=== PATIENT | female | born 2000 | race Caucasian/White ===

== ENCOUNTER → 2024-01-28 14:25 | Outpatient (BNVA) | payer MEDICAID, SELFPAY | PROVIDERS: PCP Nurse Practitioner Family; Visit Provider Nurse Practitioner Family | DX: R05.9 Cough, unspecified (principal); J06.9 Acute upper respiratory infection, unspecified; J45.20 Mild intermittent asthma, uncomplicated | CPT/HCPCS: 87426 ==

== ENCOUNTER → 2024-04-23 10:58 | Outpatient (BNVA) | payer MEDICAID, SELFPAY | PROVIDERS: PCP Nurse Practitioner Family; Visit Provider Emergency Medicine | DX: Z20.2 Contact with and (suspected) exposure to infections with a predominantly sexual mode of transmission (principal) | CPT/HCPCS: 87491; 87591 ==

== ENCOUNTER → 2024-06-26 11:53 | Outpatient (BNVA) | payer MEDICAID, SELFPAY | PROVIDERS: PCP Nurse Practitioner Family | DX: Z34.90 Encounter for supervision of normal pregnancy, unspecified, unspecified trimester (principal) | CPT/HCPCS: 81025 ==

== ENCOUNTER 2024-08-16 20:26 | Emergency (ER) | payer MEDICAID, SELFPAY ==
[2024-08-16 20:36] VITALS: BP 105/67; PULSE 75; RESP 16; TEMP 36.6; O2SAT 95; BMI 24.7
--- NOTE | 2024-08-16 20:55 | ED_ITS ---
HPI - 2 General: Chief complaint: Vaginal Bleeding Stated complaint: 8-9wks, cramping,bleeding Time Seen by Provider: 08/16/24 20:31 Source: patient Mode of arrival: ambulatory Limitations: no limitations History of Present Illness: 24-year-old female states she is current ly 8 to 9 weeks she states that she saw her OB today and ultrasound showed twin gestation but was informed that appeared irregular patient states she started having some bleeding this evening she denies any severe pain denies any heavy bleeding she denies any worse improving factors. Associated symptoms: Deny abdominal pain, dysuria, headache(s), nausea or vomiting Related Data Previous Rx's Medication Instructions Recorded meclizine 25 mg tablet 25 mg PO .once daily PRN motion 01/02/24 sickness #10 tabs albuterol sulfate 90 mcg/actuation 2 inh inhalation QID PRN shortness 01/28/24 breath activated powder inhaler of breath or wheezing #1 ea (ProAir RespiClick) norgestimate 0.25 mg-ethinyl 1 tab PO DAILY #84 tabs 03/26/24 estradiol 35 mcg tablet (Sprintec (28)) Allergies Allergy/AdvReac Type Severity Reaction Status Date / Time No Known Allergies Allergy Verified 08/16/24 20:43 Review of Systems 2 Const: Denies: fever(s), chills, body aches or change in appetite ENMT: Denies: throat pain or dental pain Card: Denies: chest pain Resp: Denies: dyspnea GI: Denies: abdominal pain, nausea, vomiting or diarrhea : Reports: vaginal bleeding; Denies: dysuria Musc: Denies: neck pain or back pain Skin/Breast: Denies: rash Neuro: Denies: headache(s) PFSH ED 2 PFSH: Social History Smoking and tobacco/nicotine status: never used tobacco/nicotine Alcohol intake: never Substance/Drug Use: never Adopted: Yes Caregiver/support person: No Lives independently: Yes Household members: family Housing: House Marital status: Number of children: 1 service: No Current occupational status: unemployed Physical Exam 2 Const: COMMON NORMALS: no acute distress, patient oriented x3 and healthy appearing HENMT: COMMON NORMALS: normocephalic and atraumatic HEAD & SCALP: n ormocephalic and atraumatic Neck/C-Spine: COMMON NORMALS: full ROM and supple Chest: COMMONS NORMALS: normal inspection of the chest Resp: COMMON NORMALS: normal respiratory effort Cardio: COMMON NORMALS: regular rate, regular rhythm and No murmurs present (Cardio) RATE: regular rate RHYTHM: regular rhythm GI: COMMON NORMALS: Normal to inspection, nondistended, normoactive bowel sounds present, Soft to palpation, non-tender and no masses PALPATION: Yes Soft to palpation Extremity: COMMON NORMALS: normal to inspection and full ROM Neuro: COMMON NORMALS: patient oriented x3, moves all extremities and no focal motor deficits Psych: COMMON NORMALS: mental status grossly normal, Normal thought process present and cooperative THOUGHT PROCESS: Normal thought process present Skin: COMMON NORMALS: no rashes or lesions noted and no wounds GENERAL SKIN EXAM: no rashes or lesions noted Course 2 Vital Signs: Vital signs: Vital Signs Temperature 97.9 F 08/16/24 20:36 Pulse Rate 75 08/16/24 20:36 Respiratory Rate 16 08/16/24 20:36 Blood Pressure 105/67 08/16/24 20:36 Pulse Oximetry 95 08/16/24 20:36 Oxygen Delivery Me thod Room Air 08/16/24 20:36 MDM - OB/Uterine Contractions Medical Decision Making Patient presents here with vaginal bleeding. Patient's ultrasound showed twin gestational sacs with no definite IUP likely twin demise I did inform patient that she is follow-up with OB return if worsening. Medical Records I reviewed the patient's medical records. Lab Data I reviewed the patient's lab results. 08/16/24 21:10 Laboratory Results WBC 10.02 10^3/uL (3.29-11.43) 08/16/24 21:10 RBC 4.46 10^6/uL (3.85-5.65) 08/16/24 21:10 Hgb 12.90 g/dL (11.27-16.99) 08/16/24 21:10 Hct 38.3 % (36-47) 08/16/24 21:10 MCV 85.9 fl (85-98) 08/16/24 21:10 MCH 28.9 pg (27-33) 08/16/24 21:10 MCHC 33.7 g/dL (30-55) 08/16/24 21:10 RDW 11.7 % (12.1-15.1) L 08/16/24 21:10 Plt Count 251 10^3/cmm (157-399) 08/16/24 21:10 MPV 10.1 fL (7.4-10.4) 08/16/24 21:10 Neut % (Auto) 60.1 % 08/16/24 21:10 Lymph % (Auto) 31.4 % 08/16/24 21:10 [place] % (Auto) 6.2 % 08/16/24 21:10 Eos % (Auto) 1.6 % 08/16/24 21:10 Baso % (Auto) 0.5 % 08/16/24 21:10 Neut # (Auto) 6.02 10^3/uL (1.8-7.7) 08/16/24 21:10 Lymph # (Auto) 3.2 10^3/uL (0.8-4.8) 08/16/24 21:10 [place] # (Auto) 0.6 10^3/uL (0.2-0.9) 08/16/24 21:10 Eos # (Auto) 0.2 10^3/uL (0.0-0.8) 08/16/24 21:10 Baso # (Auto) 0.1 10^3/uL (0.0-0.1) 08/16/24 21:10 Nucleated RBC % (auto) 0 % 08/16/24 21:10 Nucleated RBCs # 0.0 /100WBC 08/16/24 21:10 Blood Type A Positive 08/16/24 21:10 Rho(D) Type Rh positive 08/16/24 21:10 All radiology interpretation(s) finalized by discharge Discharge Plan Discharge Patient Disposition: Home Clinical Impression: Threatened miscarriage Condition: Stable Prescriptions: No Action meclizine 25 mg tablet 25 mg PO .once daily PRN (Reason: motion sickness) Qty: 10 0RF ProAir RespiClick 90 mcg/actuation aerosol powdr breath activated 2 inh inhalation QID PRN (Reason: shortness of breath or wheezing) Qty: 1 5RF norgestimate-ethinyl estradiol [Sprintec (28)] 0.25-35 mg-mcg tablet 1 tab PO DAILY Qty: 84 3RF Discharge Orders: Discharge ED (Routine); Ordered 08/16/24 Ordered By: Fermin Muir Referrals: Magda Higginbotham MD [Physician] - 4-7 days Carla Fernandez FNP-C [Primary Care Provider] - Discharge Diet: Advance as tolerated Discharge Activity: Resume usual activity Patient Instructions: Threatened Miscarriage (ED) Coding Level of Care Code ED Machine [employer] for Matthew Lambert
--- NOTE | 2024-08-16 21:00 | USR_ITS ---
PROCEDURE INFORMATION: Exam: US First Trimester, Transabdominal and US , Transvaginal Exam date and time: 08/16/2024 9:21 PM Age: 24 years old Clinical indication: Lmp or gestational age (in weeks): 9 weeks 5 days by lmp; Antepartum complications; Bleeding; ; Additional info: Threatened miscarriage LABS AND CLINICAL REPORTS: Last menstrual period start date: 06/09/2024 Gestational age (Established): 9 w 5 d Estimated due date (Established): 03/16/2025 TECHNIQUE: Imaging protocol: Real-time transabdominal obstetrical ultrasound of the maternal pelvis and a first trimester , less than 14 weeks 0 days, with image documentation. Transvaginal imaging was used for better evaluation of the fetus, adnexa, and/or cervix. COMPARISON: No relevant prior studies available. FINDINGS: GESTATION: Multifetal identity: Gestation: A total of 2 Intrauterine gestation sacs are visualized. No definitive poles visualized. Yolk sacs are visualized. Mean gestational sac diameter measures 2.02 cm in 2.15 cm with estimated ultrasound age is of 6 weeks, 6 days and 7 weeks, 1 day respectively. Embryo/ cardiac activity (BPM): No pole identified. Extra-embryonic membranes/Placenta: Unremarkable. No subchorionic bleed. Amniotic/Chorionic fluid: Amniotic and extra-amniotic fluid are normal for gestational age. BIOMETRY: Gestational age (AUA): 7 w 0 d Estimated due date (AUA): 04/04/2025 Mean sac diameter: 2.09 cm. EGA (MSD) is 6 w 6 d MATERNAL: Uterus: Uterus measures 4.52 cm x 8.08 cm x 7.47 cm. Cervix: Unremarkable. Endocervical canal is closed. Right ovary/adnexa: Right ovary measures 3.2 cm x 2 cm x 3.4 cm. Right ovarian volume is 11.6 mL. Color and spectral Doppler interrogation of the right ovary demonstrates normal vascularity. There is a unilocular right ovarian cyst measuring 1.5 cm in diameter. Left ovary/adnexa: Left ovary measures 4 cm x 1 cm x 2.9 cm. Left ovarian volume is 6.4 mL. Color and spectral Doppler interrogation of the left ovary demonstrates normal vascularity. Intraperitoneal space: No intraperitoneal free fluid. US/US OB <= 14 weeks fetus [id number] IMPRESSION: Two intrauterine gestational sacs with yolk sacs. No definitive pole at this time. These findings are compatible with an early twin intrauterine . I can not comment on viability at this time. No evidence of ovarian torsion. Unilocular right ovarian cyst.
[2024-08-16 21:27] LABS: Basophils # 0.1 10^3/uL (0.0-0.1); Basophils % 0.5 %; Eosinophils # 0.2 10^3/uL (0.0-0.8); Eosinophils % 1.6 %; Hematocrit 38.3 % (36-47); Lymphocytes # 3.2 10^3/uL (0.8-4.8); Lymphocytes % 31.4 %; Mean Corpuscular HGB Conc 33.7 g/dL (30-55); Mean Corpuscular Hemoglobin 28.9 pg (27-33); Mean Corpuscular Volume 85.9 fl (85-98); Mean Platelet Volume 10.1 fL (7.4-10.4); Monocytes # 0.6 10^3/uL (0.2-0.9); Monocytes % 6.2 %; Neutrophils # 6.02 10^3/uL (1.8-7.7); Neutrophils % 60.1 %; Nucleated Red Blood Cells % 0 %; Platelet Count 251 10^3/cmm (157-399); Red Blood Count 4.46 10^6/uL (3.85-5.65); Red Cell Distribution Width 11.7 % (12.1-15.1); White Blood Count 10.02 10^3/uL (3.29-11.43)
[2024-08-16 22:16] VITALS: BP 110/69; PULSE 69; RESP 16; O2SAT 99
== END 2024-08-16 22:16 | disposition home or self-care (01) ==
PROVIDERS: Emergency Provider Emergency Medicine; PCP Nurse Practitioner Family
DX: O20.0 Threatened abortion (principal)
CPT/HCPCS: 36415; 76801; 84702; 85025; 86850; 86900; 99284

== ENCOUNTER → 2024-10-14 15:52 | Outpatient (BNVA) | payer MEDICAID, SELFPAY | PROVIDERS: PCP Nurse Practitioner Family; Visit Provider Nurse Practitioner Family | DX: R22.31 Localized swelling, mass and lump, right upper limb (principal) | CPT/HCPCS: 73110 ==

== ENCOUNTER 2024-10-29 16:14 | Outpatient (CLI) | payer MEDICAID, SELFPAY ==
--- NOTE | 2024-10-29 16:45 | USR_ITS ---
PROCEDURE INFORMATION: Exam: US Right Limited Joint or Other Non-Vascular Extremity Structure Exam date and time: 10/29/2024 4:22 PM Age: 24 years old Clinical indication: Mass or lump; Arm, upper; Right; Additional info: R22.31 - localized swelling, mass and lump, right upper limb TECHNIQUE: Imaging protocol: US right limited joint or other nonvascular extremity structure. Real-time ultrasound with image documentation. Exam focused on the area of clinical interest. COMPARISON: CR XR wrist RT min 3V* [id number] 10/14/2024 3:59 PM FINDINGS: Soft tissues: Unremarkable. No loculated collections. Other findings: Sonographic images were obtained over the area of interest of right wrist lump. A mildly complex predominant anechoic cystic focus with component of internal echoes and/or partial septation identified within the soft tissues, measuring 1.2 x 1.1 x 0.5 cm. This is without color flow or nonvascular. This appear somewhat ovoid and slightly lobulated. US/US soft tissue/extremity [id number] IMPRESSION: 1.2 x 1.1 x 0.5 cm mildly complex nonvascular cystic mass corresponding to area of right wrist lump. Findings likely represent ganglion cyst. Further evaluation as clinically indicated.
== END 2024-10-29 16:15 | disposition home or self-care (01) ==
LOC: RAD 16:14
PROVIDERS: PCP Nurse Practitioner Family; Visit Provider Nurse Practitioner Family
DX: R22.31 Localized swelling, mass and lump, right upper limb (principal)
CPT/HCPCS: 76882

== ENCOUNTER → 2024-11-24 09:58 | Outpatient (BNVA) | payer MEDICAID, SELFPAY | PROVIDERS: PCP Nurse Practitioner Family; Visit Provider Specialist | DX: M67.431 Ganglion, right wrist (principal) | CPT/HCPCS: 73110 ==

== ENCOUNTER 2024-12-11 23:10 | Emergency (ER) | payer MEDICAID, SELFPAY ==
[2024-12-11 23:22] VITALS: BP 123/68; PULSE 61; RESP 20; TEMP 36.7; O2SAT 99
[2024-12-11 23:55] LABS: Bilirubin Urine Negative (Negative); Blood Urine 3+ (Negative); Glucose Urine UA Negative (Normal); Ketones Urine Negative (Negative); Leukocyte Esterase Urine 2+ (Negative); Nitrate Urine Negative (Negative); Protein Urine 1+ (Negative); Specific Gravity, Urine 1.009 (1.005-1.030); Urine Appearance Cloudy (CLEAR); Urobilinogen Urine 0.2 mg/dL (Negative); pH Urine 6.5 (5-7)
[2024-12-12] LABS: Add Urine Microscopic? YES; Bacteria Urine None Seen /hpf; Hyaline Casts Urine 0-4 /lpf; RBC Urine >100 /hpf (0-2); Squamous Epithelial Cell Urine 0-5 /hpf (0-5)
--- NOTE | 2024-12-12 00:23 | ED_ITS ---
Documented by User: Cassie So NP 12/12/24 13:26 HPI - General Adult 2 General: Chief complaint: Vaginal Bleeding Stated complaint: VAG BLEEDING, ABDOMEN PAIN Time Seen by Provider: 12/11/24 23:16 History of Present Illness: 24-year-old female patient presents to [facility] emergency department with vaginal bleeding onset today. Patient states she had a miscarriage 2 months ago and she has not sure if this is still from her miscarriage or the start of her period. Patient denies any abdominal pain vaginal pain urinary symptoms back pain. Patient denies any fever. Patient denies any other complaints Related Data Previous Rx's ?Medication ?Instructions ?Recorded meclizine 25 mg tablet 25 mg PO .once daily PRN mot ion 01/02/24 sickness #10 tabs albuterol sulfate 90 mcg/actuation 2 inh inhalation QI D PRN shortness 01/28/24 breath activated powder inhaler of breath or wheezing #1 ea (ProAir RespiClick) norgestimate 0.25 mg-ethinyl 1 tab PO DAILY #84 tabs 0 03/26/24 estradiol 0.035 mg tablet (Sprintec (28)) cephalexin 500 mg capsule 500 mg PO TID 7 days #21 cap s 12/12/24 Allergies Allergy/AdvReac Type Severity Reaction Status Date / Time No Known Allergies Allergy Verified 11/24/24 08:02 Review of Systems 2 General: Reports: 10 or more systems reviewed and unremarkable except in HPI and below PFSH ED 2 PFSH: Social History Smoking and tobacco/nicotine status: never used tobacco/nicotine Alcohol intake: never Substance/Drug Use: never Adopted: Yes Caregiver/support person: No Lives independently: Yes Household members: family Housing: House Marital status: Number of children: 1 service: No Current occupational status: unemployed Physical Exam 2 Const: COMMON NORMALS: no acute distress, average body habitus, patient oriented x3, no limitations and well nourished GENERAL APPEARANCE: c ooperative ORIENTATION/CONSCIOUSNESS: Yes awake Resp: COMMON NORMALS: normal respiratory effort GI: COMMON NORMALS: Normal to inspection, nondistended, normoactive bowel sounds present, Soft to palpation and non-tender PALPATION: Yes Soft to palpation Neuro: COMMON NORMALS: patient oriented x3 Psych: ATTITUDE: Yes engaged ACTIVITY/MOTOR BEHAVIOR: Yes appropriate eye contact ATTENTION/CONCENTRATION: Yes attention grossly intact M FREDERIC/COGNITION: Yes memory grossly intact Skin: COMMON NORMALS: no rashes or lesions noted, turgor normal and no jaundice GENERAL SKIN EXAM: no rashes or lesions noted and turgor normal Course 2 Vital Signs: Vital signs: Vital Signs Temperature 98.1 F 12/11/24 23:22 Pulse Rate 52 L 12/12/24 02:47 Respiratory Rate 16 12/12/24 02:47 Blood Pressure 114/64 12/12/24 02:47 Pulse Oximetry 100 12/12/24 02:47 MDM - General Adult Medical Decision Making Labs and US pending at this time. Report given to Dr. Hernandez. Dr. Hernandez will assume care at this time. Lab Data 12/11/24 01:35 12/11/24 01:35 Radiology Impressions Transvaginal US 12/12/24 23:16 IMPRESSION: 1. No evidence of endometrial thickening. Trace fluid within the endometrial canal with questionable vascularity near the fundal endometrium. 2. Trace pelvic free fluid, likely physiologic. 3. Otherwise unremarkable pelvic ultrasound. Laboratory Results WBC 12.59 10^3/uL (3.29-11.43) H 12/11/24 01:35 RBC 4.06 10^6/uL (3.85-5.65) 12/11/24 01:35 Hgb 11.90 g/dL (11.27-16.99) 12/11/24 01:35 Hct 35.6 % (36-47) L 12/11/24 01:35 MCV 87.7 fl (85-98) 12/11/24 01:35 MCH 29.3 pg (27-33) 12/11/24 01:35 MCHC 33.4 g/dL (30-55) 12/11/24 01:35 RDW 11.6 % (12.1-15.1) L 12/11/24 01:35 Plt Count 254 10^3/cmm (157-399) 12/11/24 01:35 MPV 10.4 fL (7.4-10.4) 12/11/24 01:35 Neut % (Auto) 73.5 % 12/11/24 01:35 Lymph % (Auto) 20.3 % 12/11/24 01:35 [place] % (Auto) 4.1 % 12/11/24 01:35 Eos % (Auto) 1.3 % 12/11/24 01:35 Baso % (Auto) 0.5 % 12/11/24 01:35 Neut # (Auto) 9.27 10^3/uL (1.8-7.7) H 12/11/24 01:35 Lymph # (Auto) 2.6 10^3/uL (0.8-4.8) 12/11/24 01:35 Randall # (Auto) 0.5 10^3/uL (0.2-0.9) 12/11/24 01:35 Eos # (Auto) 0.2 10^3/uL (0.0-0.8) 12/11/24 01:35 Baso # (Auto) 0.1 10^3/uL (0.0-0.1) 12/11/24 01:35 Nucleated RBC % (auto) 0 % 12/11/24 01:35 Nucleated RBCs # 0.0 /100WBC 12/11/24 01:35 Sodium 141 mmol/L (136-145) 12/11/24 01:35 Potassium 3.8 mmol/L (3.5-5.1) 12/11/24 01:35 Chloride 105 mmol/L (98-107) 12/11/24 01:35 Carbon Dioxide 23 mmol/L (22-29) 12/11/24 01:35 Anion Gap 16.8 (5-19) 12/11/24 01:35 BUN 9 mg/dL (6-20) 12/11/24 01:35 Creatinine 0.5 mg/dL (0.5-0.9) 12/11/24 01:35 GFR Calculation 154.3 mL/min (90-130) H 12/11/24 01:35 Glucose 98 mg/dL (65-115) 12/11/24 01:35 Calculated Osmolality 291 mOsm/kg (285-295) 12/11/24 01:35 Calcium 9.0 mg/dL (8.5-10.5) 12/11/24 01:35 Total Bilirubin 0.2 mg/dL (0.15-1.2) 12/11/24 01:35 AST 13 U/L (0-32) 12/11/24 01:35 ALT 12 U/L (0-33) 12/11/24 01:35 Alkaline Phosphatase 67 U/L (35-105) 12/11/24 01:35 Total Protein 7.0 g/dL (6.6-8.7) 12/11/24 01:35 Albumin 4.0 g/dL (3.5-5.2) 12/11/24 01:35 Globulin 3.0 g/dL (1.3-4.6) 12/11/24 01:35 Ser , Semi-Qnt 21.37 mIU/mL 12/11/24 01:35 Urine Color Red (Yellow) A 12/11/24 23: Urine Appearance Cloudy (CLEAR) A 12/11/24 23: Urine pH 6.5 (5-7) 12/11/24 23: Ur Specific [place] 1.009 (1.005-1.030) 12/11/24 23: Urine Protein 1+ (Negative) A 12/11/24: Urine Glucose (UA) Negative (Normal) 12/11/24 23: Urine Ketones Negative (Negative) 12/11/24 23: Urine Blood 3+ (Negative) A 12/11/24: Urine Nitrate Negative (Negative) 12/11/24: Urine Bilirubin Negative (Negative) 12/11/24 23: Urine Urobilinogen 0.2 mg/dL (Negative) 12/11/24 23: Ur Leukocyte Esterase 2+ (Negative) A 12/11/24: Urine RBC >100 /hpf (0-2) H 12/11/24 23: Urine WBC 11-20 /hpf (0-5) H 12/11/24 23: Ur Squamous Epith Cells 0-5 /hpf (0-5) 12/11/24: Amorphous Sediment Not Reportable 12/11/24: Urine Bacteria None seen /hpf (NONE) 12/11/24: Hyaline Casts 0-4 /lpf H 12/11/24 23:33 Discharge Plan Discharge Patient Disposition: Home Clinical Impression: Vaginal bleeding Condition: Stable Prescriptions: New cephalexin 500 mg capsule 500 mg PO TID 7 Days Qty: 21 0RF No Action meclizine 25 mg tablet 25 mg PO .once daily PRN (Reason: motion sickness) Qty: 10 0RF ProAir RespiClick 90 mcg/actuation aerosol powdr breath activated 2 inh inhalation QID PRN (Reason: shortness of breath or wheezing) Qty: 1 5RF norgestimate-ethinyl estradiol [Sprintec (28)] 0.25-35 mg-mcg tablet 1 tab PO DAILY Qty: 84 3RF Discharge Orders: Discharge ED (Routine); Ordered 12/12/24 Ordered By: Giorgi Hernandez Referrals: Carla Fernandez FNP-C [Primary Care Provider, Family Practice] - 4-7 days Patient Instructions: Abnormal (Dysfunctional) Uterine Bleeding (ED), Urinary Tract Infection in Women (ED), Opioid Safety, Pain Management Activity Restrictions/Additional Instructions: Antibiotics as directed for urinary tract infection. You will need your quantitative test checked again to ensure that number is continuing to decrease down to 0. Follow-up with your doctor next week. Call Friday for an appointment. You will need to have your urine retested as well to ensure you are clearing the infection. Return for any worsening symptoms including and especially worsening bleeding. Print Language: Fijian Coding Level of Care Code ED [employer] Agent for Chg Fwd Documented by User: Giorgi Hernandez DO 12/12/24 02:50 HPI - General Adult 2 General: Chief complaint: Vaginal Bleeding Stated complaint: VAG BLEEDING, ABDOMEN PAIN Time Seen by Provider: 12/11/24 23:16 Related Data Previous Rx's ?Medication ?Instructions ?Recorded meclizine 25 mg tablet 25 mg PO .once daily PRN mot ion 01/02/24 sickness #10 tabs albuterol sulfate 90 mcg/actuation 2 inh inhalation QI D PRN shortness 01/28/24 breath activated powder inhaler of breath or wheezing #1 ea (ProAir RespiClick) norgestimate 0.25 mg-ethinyl 1 tab PO DAILY #84 tabs 0 03/26/24 estradiol 0.035 mg tablet (Sprintec (28)) cephalexin 500 mg capsule 500 mg PO TID 7 days #21 cap s 12/12/24 Allergies Allergy/AdvReac Type Severity Reaction Status Date / Time No Known Allergies Allergy Verified 11/24/24 08:02 PFS ED 2 PFSH: Social History Smoking and tobacco/nicotine status: never used tobacco/nicotine Alcohol intake: never Substance/Drug Use: never Adopted: Yes Caregiver/support person: No Lives independently: Yes Household members: family Housing: House Marital status: Number of children: 1 service: No Current occupational status: unemployed Course 2 Vital Signs: Vital signs: Vital Signs Temperature 98.1 F 12/11/24 23:22 Pulse Rate 52 L 12/12/24 02:47 Respiratory Rate 16 12/12/24 02:47 Blood Pressure 114/64 12/12/24 02:47 Pulse Oximetry 100 12/12/24 02:47 [facility] - General Adult Medical Decision Making Labs and US pending at this time. Report given to Dr. Hernandez. Dr. Hernandez will assume care at this time. Patient's laboratory shows a white blood cell count of 12.6. BMP is normal. hCG quantitative is 21. Urinalysis shows 2+ leukocyte esterase with 11-20 white blood cells. There is greater than 100 whites, contamination from vaginal bleeding. Will treat as urinary tract infection. Transvaginal ultrasound shows no evidence of a gestational sac. There is no evidence of endometrial thickening and physiologic pelvic free fluid. She will need outpatient follow- up. She will need repeat quantitative hCG testing as she is 2 months out from miscarriage, and hCG will need to come down to 0. To return for any worsening bleeding. Lab Data 12/11/24 01:35 12/11/24 01:35 Radiology Impressions Transvaginal US 12/12/24 23:16 IMPRESSION: 1. No evidence of endometrial thickening. Trace fluid within the endometrial canal with questionable vascularity near the fundal endometrium. 2. Trace pelvic free fluid, likely physiologic. 3. Otherwise unremarkable pelvic ultrasound. Laboratory Results WBC 12.59 10^3/uL (3.29-11.43) H 12/11/24 01:35 RBC 4.06 10^6/uL (3.85-5.65) 12/11/24 01:35 Hgb 11.90 g/dL (11.27-16.99) 12/11/24 01:35 Hct 35.6 % (36-47) L 12/11/24 01:35 MCV 87.7 fl (85-98) 12/11/24 01:35 MCH 29.3 pg (27-33) 12/11/24 01:35 MCHC 33.4 g/dL (30-55) 12/11/24 01:35 RDW 11.6 % (12.1-15.1) L 12/11/24 01:35 Plt Count 254 10^3/cmm (157-399) 12/11/24 01:35 MPV 10.4 fL (7.4-10.4) 12/11/24 01:35 Neut % (Auto) 73.5 % 12/11/24 01:35 Lymph % (Auto) 20.3 % 12/11/24 01:35 Randall % (Auto) 4.1 % 12/11/24 01:35 Eos % (Auto) 1.3 % 12/11/24 01:35 Baso % (Auto) 0.5 % 12/11/24 01:35 Neut # (Auto) 9.27 10^3/uL (1.8-7.7) H 12/11/24 01:35 Lymph # (Auto) 2.6 10^3/uL (0.8-4.8) 12/11/24 01:35 Randall # (Auto) 0.5 10^3/uL (0.2-0.9) 12/11/24 01:35 Eos # (Auto) 0.2 10^3/uL (0.0-0.8) 12/11/24 01:35 Baso # (Auto) 0.1 10^3/uL (0.0-0.1) 12/11/24 01:35 Nucleated RBC % (auto) 0 % 12/11/24 01:35 Nucleated RBCs # 0.0 /100WBC 12/11/24 01:35 Sodium 141 mmol/L (136-145) 12/11/24 01:35 Potassium 3.8 mmol/L (3.5-5.1) 12/11/24 01:35 Chloride 105 mmol/L (98-107) 12/11/24 01:35 Carbon Dioxide 23 mmol/L (22-29) 12/11/24 01:35 Anion Gap 16.8 (5-19) 12/11/24 01:35 BUN 9 mg/dL (6-20) 12/11/24 01:35 Creatinine 0.5 mg/dL (0.5-0.9) 12/11/24 01:35 GFR Calculation 154.3 mL/min (90-130) H 12/11/24 01:35 Glucose 98 mg/dL (65-115) 12/11/24 01:35 Calculated Osmolality 291 mOsm/kg (285-295) 12/11/24 01:35 Calcium 9.0 mg/dL (8.5-10.5) 12/11/24 01:35 Total Bilirubin 0.2 mg/dL (0.15-1.2) 12/11/24 01:35 AST 13 U/L (0-32) 12/11/24 01:35 ALT 12 U/L (0-33) 12/11/24 01:35 Alkaline Phosphatase 67 U/L (35-105) 12/11/24 01:35 Total Protein 7.0 g/dL (6.6-8.7) 12/11/24 01:35 Albumin 4.0 g/dL (3.5-5.2) 12/11/24 01:35 Globulin 3.0 g/dL (1.3-4.6) 12/11/24 01:35 Ser , Semi-Qnt 21.37 mIU/mL 12/11/24 01:35 Urine Color Red (Yellow) A 12/11/24 23: Urine Appearance Cloudy (CLEAR) A 12/11/24 23: Urine pH 6.5 (5-7) 12/11/24 23: Ur Specific [place] 1.009 (1.005-1.030) 12/11/24 23: Urine Protein 1+ (Negative) A 12/11/24 23: Urine Glucose (UA) Negative (Normal) 12/11/24 23: Urine Ketones Negative (Negative) 12/11/24 23: Urine Blood 3+ (Negative) A 12/11/24 23: Urine Nitrate Negative (Negative) 12/11/24 23:33 Urine Bilirubin Negative (Negative) 12/11/24 23:33 Urine Urobilinogen 0.2 mg/dL (Negative) 12/11/24 23:33 Ur Leukocyte Esterase 2+ (Negative) A 12/11/24 23:33 Urine RBC >100 /hpf (0-2) H 12/11/24 23:33 Urine WBC 11-20 /hpf (0-5) H 12/11/24 23:33 Ur Squamous Epith Cells 0-5 /hpf (0-5) 12/11/24 23:33 Amorphous Sediment Not Reportable 12/11/24 23:33 Urine Bacteria None seen /hpf (NONE) 12/11/24 23:33 Hyaline Casts 0-4 /lpf H 12/11/24 23:33 All radiology interpretation(s) finalized by discharge Discharge Plan Discharge Patient Disposition: Home Clinical Impression: Vaginal bleeding Condition: Stable Prescriptions: New cephalexin 500 mg capsule 500 mg PO TID 7 Days Qty: 21 0RF No Action meclizine 25 mg tablet 25 mg PO .once daily PRN (Reason: motion sickness) Qty: 10 0RF ProAir RespiClick 90 mcg/actuation aerosol powdr breath activated 2 inh inhalation QID PRN (Reason: shortness of breath or wheezing) Qty: 1 5RF norgestimate-ethinyl estradiol [Sprintec (28)] 0.25-35 mg-mcg tablet 1 tab PO DAILY Qty: 84 3RF Discharge Orders: Discharge ED (Routine); Ordered 12/12/24 Ordered By: Giorgi Hernandez Referrals: Carla Fernandez FNP-C [Primary Care Provider, Family Practice] - 4-7 days Patient Instructions: Abnormal (Dysfunctional) Uterine Bleeding (ED), Urinary Tract Infection in Women (ED), Opioid Safety, Pain Management Activity Restrictions/Additional Instructions: Antibiotics as directed for urinary tract infection. You will need your quantitative test checked again to ensure that number is continuing to decrease down to 0. Follow-up with your doctor next week. Call Friday for an appointment. You will need to have your urine retested as well to ensure you are clearing the infection. Return for any worsening symptoms including and especially worsening bleeding. Print Language: Fijian Coding Level of Care Code ED [employer] Agent for Matthew Lambert
[2024-12-12 00:46] LABS: Urine Color Red (Yellow)
[2024-12-12 00:47] LABS: Add Urine Culture? Yes
[2024-12-12 01:44] LABS: Basophils # 0.1 10^3/uL (0.0-0.1); Basophils % 0.5 %; Eosinophils # 0.2 10^3/uL (0.0-0.8); Eosinophils % 1.3 %; Hematocrit 35.6 % (36-47); Lymphocytes # 2.6 10^3/uL (0.8-4.8); Lymphocytes % 20.3 %; Mean Corpuscular HGB Conc 33.4 g/dL (30-55); Mean Corpuscular Hemoglobin 29.3 pg (27-33); Mean Corpuscular Volume 87.7 fl (85-98); Mean Platelet Volume 10.4 fL (7.4-10.4); Monocytes # 0.5 10^3/uL (0.2-0.9); Monocytes % 4.1 %; Neutrophils # 9.27 10^3/uL (1.8-7.7); Neutrophils % 73.5 %; Nucleated Red Blood Cells % 0 %; Platelet Count 254 10^3/cmm (157-399); Red Blood Count 4.06 10^6/uL (3.85-5.65); Red Cell Distribution Width 11.6 % (12.1-15.1); White Blood Count 12.59 10^3/uL (3.29-11.43)
[2024-12-12 02:19] LABS: HCG Quantitative 21.37 mIU/mL
[2024-12-12 02:30] LABS: Alanine Aminotransferase 12 U/L (0-33); Alkaline Phosphatase 67 U/L (35-105); Anion Gap 16.8 (5-19); Aspartate Amino Transferase 13 U/L (0-32); Blood Urea Nitrogen 9 mg/dL (6-20); Carbon Dioxide 23 mmol/L (22-29); Chloride 105 mmol/L (98-107); Glomerular Filtration Rate 154.3 mL/min (90-130); Glucose 98 mg/dL (65-115); Osmolality Calculated 291 mOsm/kg (285-295); Potassium 3.8 mmol/L (3.5-5.1); Sodium 141 mmol/L (136-145); Total Bilirubin 0.2 mg/dL (0.15-1.2)
[2024-12-12 02:47] VITALS: BP 114/64; PULSE 52; RESP 16; O2SAT 100
--- NOTE | 2024-12-12 23:16 | USR_ITS ---
PROCEDURE INFORMATION: Exam: US Pelvis, Transvaginal, Non-Obstetric Exam date and time: 12/12/2024 12:47 AM Age: 24 years old Clinical indication: Other: Vag bleeding TECHNIQUE: Imaging protocol: Real-time transvaginal pelvic (non-obstetric) ultrasound with image documentation. Transvaginal imaging was used for better evaluation of the endometrium, adnexa, and/or cervix. COMPARISON: US OB <= 14 weeks fetus [id number] 08/16/2024 9:21 PM FINDINGS: Uterus: The uterus is normal and measures 8.1 x 4.2 x 5.2 cm. No uterine masses are identified. There is trace fluid within the endometrial canal. The endometrium not appear significantly thickened. There is questionable vascularity near in the fundal endometrium. Right ovary/adnexa: Normal follicles in the right ovary. The right ovary measures 3.2 x 2.4 x 1.5 cm. Arterial and venous waveforms are present. Left ovary/adnexa: Normal follicles in the left ovary. The left ovary is normal and measures 1.4 x 2.3 x 3.3 cm. Arterial waveforms are present in the left ovary. Urinary bladder: Urinary bladder is not assessed. Intraperitoneal space: Trace pelvic free fluid. US/US transvaginal [id number] IMPRESSION: 1. No evidence of endometrial thickening. Trace fluid within the endometrial canal with questionable vascularity near the fundal endometrium. 2. Trace pelvic free fluid, likely physiologic. 3. Otherwise unremarkable pelvic ultrasound.
== END 2024-12-12 02:52 | disposition home or self-care (01) ==
PROVIDERS: Registered Nurse; Emergency Provider Emergency Medicine; PCP Nurse Practitioner Family
DX: N93.9 Abnormal uterine and vaginal bleeding, unspecified (principal)
CPT/HCPCS: 76830; 80053; 81001; 84702; 85025; 87086; 99284

== ENCOUNTER 2024-12-13 14:01 | Outpatient (CLI) | payer MEDICAID, SELFPAY ==
--- NOTE | 2024-12-13 14:30 | MR_ITS ---
WS: [id number] MRI RIGHT WRIST WITHOUT CONTRAST. COMPARISON: Radiograph 11/24/2024 Multiplanar, multisequence imaging is performed without contrast. No fractures or marrow edema. Normal carpal alignment. No widening of the scapholunate interval. Distal radial ulnar joint is normal. No TFCC tear. There is a very small fluid collection measuring 4.0 mm along the dorsal surface of the distal radius which could potentially be a small ganglion. Median nerve is normal. Flexor and extensor tendons are normal. MR/MR wrist RT wo con* [id number] IMPRESSION: 1. No marrow edema or fracture. 2. Small fluid collection measuring 4 mm on the dorsal surface of the distal r adius. This could potentially be a small ganglion. Patient did indicate that th e collection has decreased in size.
== END 2024-12-13 14:02 | disposition home or self-care (01) ==
PROVIDERS: PCP Nurse Practitioner Family; Visit Provider Specialist
DX: M67.431 Ganglion, right wrist (principal)
CPT/HCPCS: 73221

== ENCOUNTER → 2025-02-03 15:52 | Outpatient (BNVA) | payer MEDICAID, SELFPAY | PROVIDERS: PCP Nurse Practitioner Family; Visit Provider Nurse Practitioner Family | DX: Z01.89 Encounter for other specified special examinations (principal); R53.83 Other fatigue | CPT/HCPCS: 80053; 81025; 82306; 82607; 83540; 84443; 84702; 84703; 85025 ==

== ENCOUNTER 2025-02-18 09:36 | Outpatient (CLI) | payer MEDICAID, SELFPAY ==
--- NOTE | 2025-02-18 10:30 | US_ITS ---
WS: [email or web address] ULTRASOUND RIGHT BREAST, limited HISTORY: N63.0 - Unspecified lump in unspecified breast COMPARISON: None available. TECHNIQUE: 2-D and Doppler. There is a very hypoechoic mass with slightly irregular margin in the RIGHT breast at 10:00, 4 cm from the nipple. Mass measures 2.2 x 2.0 x 1.2 cm. There is increased vascularity within the central portion of the mass. No additional abnormalities are identified. US/US breast RT limited* [id number] IMPRESSION: BI-RADS: 4- Suspicious Finding - Biopsy Should be Considered FOLLOW-UP: Biopsy Recommended Ultrasound guided biopsy recommended of the RIGHT breast mass at 10:00. Suspect fibroadenoma but sampling of the mass needs to be performed.
== END 2025-02-18 09:37 | disposition home or self-care (01) ==
LOC: RAD 09:37
PROVIDERS: PCP Nurse Practitioner Family; Visit Provider Nurse Practitioner Family
DX: N63.11 Unspecified lump in the right breast, upper outer quadrant (principal)
CPT/HCPCS: 76642

== ENCOUNTER → 2025-03-17 14:58 | Outpatient (BNVA) | payer MEDICAID, SELFPAY | PROVIDERS: PCP Nurse Practitioner Family; Visit Provider Nurse Practitioner Family | DX: N89.8 Other specified noninflammatory disorders of vagina (principal); R30.0 Dysuria | CPT/HCPCS: 81000; 87086; 87491; 87591; 87661 ==

== ENCOUNTER 2025-03-23 12:37 | Outpatient (CLI) | payer MEDICAID, SELFPAY ==
--- NOTE | 2025-03-23 13:15 | US_ITS ---
WS: [email or web address] ULTRASOUND-GUIDED RIGHT BREAST BIOPSY HISTORY: RIGHT breast mass. COMPARISON: Ultrasound 02/18/2025 Procedure, risks and complications are explained to the patient. Medications are reviewed. Consent is obtained. The mass in the RIGHT breast is localized with ultrasound. Mass localizes to 10:00. Skin is cleansed with ChloraPrep and anesthetized with 1% buffered lidocaine. Small dermatome is made. Under sterile conditions mass is biopsied with a 14-gauge Achieve needle. Multiple core biopsies are performed. Material placed in formalin and sent to pathology for review. No complications encountered. Breast tissue marker (Tvoop ultrasound enhanced ribbon): Single. Patient left the radiology suite with no complications. Patient is instructed to return to [facility] or call with any concerns. US/[place] [id number] IMPRESSION: 1. Uncomplicated core needle biopsy RIGHT breast mass at 10:00, 4 cm from the nipple. PATHOLOGY: Fibroepithelial lesion most consistent with fibroadenoma. No atypia or malignancy. RECOMMENDATION: RIGHT breast ultrasound follow-up in 6 months.
== END 2025-03-23 12:38 | disposition home or self-care (01) ==
LOC: RAD 12:38
PROVIDERS: PCP Nurse Practitioner Family; Visit Provider Student in an Organized Health Care Education/Training Program
DX: N63.10 Unspecified lump in the right breast, unspecified quadrant (principal)
CPT/HCPCS: 19083; 88305